=== PATIENT | female | born 1980 | race Caucasian/White ===

== ENCOUNTER → 2019-08-12 08:20 | Outpatient (BNVA) | payer BC, SELFPAY | PROVIDERS: Family Provider Family Medicine; PCP Family Medicine; Referring Provider Obstetrics & Gynecology; Visit Provider Obstetrics & Gynecology | DX: Z32.01 Encounter for pregnancy test, result positive (principal) | CPT/HCPCS: 81025 ==

== ENCOUNTER → 2019-08-17 11:05 | Outpatient (BNVA) | payer BC, SELFPAY | PROVIDERS: Family Provider Family Medicine; PCP Family Medicine; Visit Provider Obstetrics & Gynecology | DX: O09.899 Supervision of other high risk pregnancies, unspecified trimester (principal) | CPT/HCPCS: 76805; 76815; 80053; 80307; 82950; 84315; 85027; 86592; 86762; 86803; 86850; 86900; 87077; 87086; 87186; 87340; 87491; 87591; 88175 ==

== ENCOUNTER → 2019-08-21 08:17 | Outpatient (BNVA) | payer BC, SELFPAY | PROVIDERS: Family Provider Family Medicine; PCP Family Medicine; Visit Provider Obstetrics & Gynecology | DX: O30.002 Twin pregnancy, unspecified number of placenta and unspecified number of amniotic sacs, second trimester (principal) | CPT/HCPCS: 76805; 76810 ==

== ENCOUNTER → 2019-09-09 08:54 | Outpatient (BNVA) | payer BC, SELFPAY | PROVIDERS: Family Provider Family Medicine; PCP Family Medicine; Visit Provider Obstetrics & Gynecology | DX: Z01.89 Encounter for other specified special examinations (principal) | CPT/HCPCS: 84315 ==

== ENCOUNTER → 2019-10-06 10:58 | Outpatient (BNVA) | payer BC, SELFPAY | PROVIDERS: Family Provider Family Medicine; PCP Family Medicine; Visit Provider Obstetrics & Gynecology | DX: O99.89 Other specified diseases and conditions complicating pregnancy, childbirth and the puerperium (principal); R82.71 Bacteriuria; O99.210 Obesity complicating pregnancy, unspecified trimester; Z64.1 Problems related to multiparity; O30.099 Twin pregnancy, unable to determine number of placenta and number of amniotic sacs, unspecified trimester; O09.899 Supervision of other high risk pregnancies, unspecified trimester | CPT/HCPCS: 80053; 82950; 84315; 85027 ==

== ENCOUNTER 2019-10-14 11:49 | Observation (INO) | payer BC, SELFPAY ==
[2019-10-14 11:59] VITALS: BMI 35.5
[2019-10-14 12:02] VITALS: BP 136/71; PULSE 102; RESP 20; TEMP 36.7
[2019-10-14 12:27] VITALS: BP 123/71; PULSE 105
--- NOTE | 2019-10-14 12:33 | PC.NURSE ---
Reactive NST verified by Nomi Barr RN
[2019-10-14 12:46] VITALS: BP 123/71; PULSE 105; RESP 18; TEMP 36.7
== END 2019-10-14 12:51 | disposition home or self-care (01) ==
PROVIDERS: Admitting Provider Obstetrics & Gynecology; Family Provider Family Medicine; PCP Family Medicine; Visit Provider Obstetrics & Gynecology
DX: O26.899 Other specified pregnancy related conditions, unspecified trimester (principal); Z3A.00 Weeks of gestation of pregnancy not specified; K62.5 Hemorrhage of anus and rectum
CPT/HCPCS: 59025; 99211; G0378; G0379